=== PATIENT | female | born 1995 ===

== ENCOUNTER 2018-02-12 18:00 | Emergency (ER) | payer MEDICAID ==
[2018-02-12 18:07] VITALS: BP 129/80; PULSE 79; RESP 18; TEMP 97.6; O2SAT 100
--- NOTE | 2018-02-12 18:59 | C.PDOC ---
History Of Present Illness 23 year old female presents to the ED for evaluation of redness to her right eye which began yesterday. Patient notes crustiness around her eyes when she wakes up in the morning. Patient also c/o cough, runny nose, fever, and throat pain. Patient used Visine eye drops without relief. She denies eye pain or itchiness, contact use, vision change, or injury to the area. Time Seen by Provider: 02/12/18 18:25 Chief Complaint (Nursing): Eye Problem History Per: Patient History/Exam Limitations: no limitations Current Symptoms Are (Timing): Still Present Past Medical History Reviewed: Historical Data, Nursing Documentation, Vital Signs Vital Signs: Last Vital Signs Temp 97.6 F 02/12/18 18:03 Pulse 79 02/12/18 18:03 Resp 18 02/12/18 18:03 BP 129/80 02/12/18 18:03 Pulse Ox 100 02/12/18 19:40 - Medical History PMH: No Chronic Diseases Surgical History: No Surg Hx Family History: States: Unknown Family Hx - Social History Hx Alcohol Use: Yes Hx Substance Use: No - Immunization History Hx Tetanus Toxoid Vaccination: Yes Hx Influenza Vaccination: No Hx Pneumococcal Vaccination: No ED Course And Treatment O2 Sat by Pulse Oximetry: 100 Disposition - Disposition Referrals: Willy Nath MD [Staff Provider] - Disposition Time: 18:59 Additional Instructions: Follow up with the medical doctor within 1-2 days. return if worsened. 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 - Scribe Statement The provider has reviewed the documentation as recorded by the Scribe (Rosy Patino) All medical record entries made by the Scribe were at my direction and personally dictated by me. I have reviewed the chart and agree that the record accurately reflects my personal performance of the history, physical exam, medical decision making, and the department course for this patient. I have also personally directed, reviewed, and agree with the discharge instructions and disposition.
--- NOTE | 2018-02-12 19:32 | C.PDOC ---
History Of Present Illness 23 year old female presents to the ED for evaluation of redness to her right eye which began yesterday. Patient notes crustiness around her eyes when she wakes up in the morning. Patient also c/o cough, runny nose, fever, and throat pain. Patient used visine eye drops without relief. She denies eye pain or itchiness, contact use, vision change, or injury to the area. Time Seen by Provider: 02/12/18 18:25 Chief Complaint (Nursing): Eye Problem History Per: Patient History/Exam Limitations: no limitations Onset/Duration Of Symptoms: Hrs Current Symptoms Are (Timing): Still Present Injury To Eye?: No Quality: denies: "Pain" Wears Contact Lens?: No Associated Symptoms: Discharge From Eye. denies: Pain, Decreased Vision, Itching Additional History Per: Patient Past Medical History Reviewed: Historical Data, Nursing Documentation, Vital Signs Vital Signs: Last Vital Signs Temp 97.6 F 02/12/18 18:03 Pulse 79 02/12/18 18:03 Resp 18 02/12/18 18:03 BP 129/80 02/12/18 18:03 Pulse Ox 100 02/12/18 19:47 - Medical History PMH: No Chronic Diseases Surgical History: No Surg Hx Family History: States: Unknown Family Hx - Social History Hx Alcohol Use: Yes Hx Substance Use: No - Immunization History Hx Tetanus Toxoid Vaccination: Yes Hx Influenza Vaccination: No Hx Pneumococcal Vaccination: No Review Of Systems Constitutional: Positive for: Fever Eyes: Positive for: Redness (right). Negative for: Pain, Vision Change ENT: Positive for: Nose Discharge, Throat Pain Respiratory: Positive for: Cough Physical Exam - Physical Exam Appears: Non-toxic, No Acute Distress Skin: Normal Color, Warm, Dry Head: Atraumatic, Normacephalic Eye(s): bilateral: PERRL, EOMI, right: Other (conjunctival injection ), left: Normal Inspection Oral Mucosa: Moist Neck: Supple Chest: Symmetrical, No Deformity, No Tenderness Cardiovascular: Rhythm Regular, No Murmur Respiratory: Normal Breath Sounds, No Rales, No Rhonchi, No Wheezing Extremity: Normal ROM, Capillary Refill (less than 2 seconds ) Neurological/Psych: Oriented x3, Normal Speech, Normal Cognition ED Course And Treatment O2 Sat by Pulse Oximetry: 100 (on RA) Pulse Ox Interpretation: Normal Medical Decision Making Medical Decision Making: Progress: Prednisone PO administered. Disposition - Disposition Referrals: Willy Nath MD [Staff Provider] - Disposition: HOME/ ROUTINE Disposition Time: 18:59 Condition: GOOD Additional Instructions: Follow up with the medical doctor within 1-2 days. return if worsened. 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 - Scribe Statement The provider has reviewed the documentation as recorded by the Scribe (Rosy Patino) All medical record entries made by the Scribe were at my direction and personally dictated by me. I have reviewed the chart and agree that the record accurately reflects my personal performance of the history, physical exam, medical decision making, and the department course for this patient. I have also personally directed, reviewed, and agree with the discharge instructions and disposition.
== END 2018-02-12 19:10 | disposition home or self-care (01) ==
LOC: C.ER 18:00
DX: H10.9 Unspecified conjunctivitis (principal); J06.9 Acute upper respiratory infection, unspecified